=== PATIENT | female | born 1965 | race Two or more races ===

== ENCOUNTER 2019-03-28 19:26 | Emergency (ER) | payer MEDICAID, OTHER ==
[~2019-03-28] VITALS: Ht 154.9 cm; Wt 65.8 kg
[2019-03-28 21:10] VITALS: BP 111/68
[2019-03-28] MEDS ORDERED: BACLOFEN 10 MG TAB PO ONE (21:30)
== END 2019-03-28 21:48 | disposition home or self-care (01) ==
LOC: ER 19:26
DX: S16.1XXA Strain of muscle, fascia and tendon at neck level, initial encounter (principal); X58.XXXA Exposure to other specified factors, initial encounter; Y93.89 Activity, other specified; Y92.89 Other specified places as the place of occurrence of the external cause; Y99.8 Other external cause status
CPT/HCPCS: 73030